=== PATIENT | female | born 1970 | race Two or more races ===

== ENCOUNTER 2021-12-22 14:10 | Inpatient (IN) | payer MEDICAID, OTHER ==
[~2021-12-22] VITALS: Ht 30.5 cm; Wt 127.0 kg
[2021-12-22] MEDS ORDERED: AMIODARONE HCL 150 MG in D5W 5% 100 ML IV ONE (14:30)
[2021-12-22] MEDS ORDERED: AMIODARONE 450mg/250ml AE 250 ML IV SCH (14:45)
[2021-12-22] MEDS: NOREPINEPHRINE 8 MG/250ML KIT 250 ML IV SCH (14:45)
[2021-12-22] MEDS: MIDAZOLAM DRIP 50 mg/50mL 50 ML IV SCH ×2 (15:30→16:14)
[2021-12-22 16:02] LABS: Basophils # (auto) 0 10 ^3/uL (0-0.2); Lymphocytes # (auto) 0.7 10 ^3/uL (0.4-5.4); Mean Corpuscular Hemoglobin 28.5 pg (28.0-32.0); Monocytes # (auto) 0.2 10 ^3/uL (0-1.3); Monocytes % (auto) 2.3 % (0.0-12.0); Nucleated Red Blood Cells % 0.1 %
[2021-12-22 16:04] LABS: Basophils % (auto) 0.6 % (0.0-2.0); Eosinophils # (auto) 0.1 10 ^3/uL (0-0.8); Eosinophils % (auto) 0.8 % (0.0-7.0); Hemoglobin 7.1 g/dL (12.2-16.2); Lymphocytes % (auto) 9.4 % (10.0-50.0); Mean Corpuscular Hgb Conc. 32.4 g/dL (32.0-36.0); Neutrophils # (auto) 6.4 10 ^3/uL (1.6-8.6); Neutrophils % (auto) 86.9 % (37.0-80.0); Red Cell Distribution Width 16.4 % (11.8-14.3); White Blood Cell 7.4 10^3/uL (4.4-10.8)
[2021-12-22 16:25] LABS: Albumin 2.5 g/dL (3.4-5.0); BUN/Creatinine Ratio 6.7; Bilirubin, Total 0.4 mg/dL (0.2-1.0); Calcium 7.8 mg/dL (8.5-10.1); Magnesium 3.3 mg/dL (1.6-2.6)
[2021-12-22 17:16] LABS: Potassium 7.7 mmol/L (3.5-5.1)
[2021-12-22] MEDS ORDERED: PROPOFOL 100 ML IV ONE (17:40)
[2021-12-22] MEDS ORDERED: CALCIUM GLUC 1,000mg/50ml-NS 50 ML IV ONE ×3 (17:47→19:30)
[2021-12-22] MEDS ORDERED: SODIUM BICARBONATE 8.4 % INJ 50ML VIAL IV ONE (18:45)
[2021-12-22] MEDS: PROPOFOL 100 ML IV SCH (18:45)
[2021-12-22 19:01] VITALS: BP 158/109
[2021-12-22] MEDS ORDERED: DOPamine 1600MCG/ML D5W 250 ML IV ONE (20:30)
[2021-12-22 22:08] VITALS: BP 143/78
[2021-12-22] MEDS ORDERED: ONDANSETRON HCL 4 MG/2 ML VIAL IV PRN (22:15)
[2021-12-22] MEDS ORDERED: ACETAMINOPHEN 650 MG RECT SUPP PR PRN (22:15)
[2021-12-22] MEDS ORDERED: DEXTROSE (50%) 50ML SYRG IV PRN (22:15)
[2021-12-22 23:28] LABS: Basophils # (auto) 0.1 10 ^3/uL (0-0.2); Basophils % (auto) 1.7 % (0.0-2.0); Eosinophils # (auto) 0 10 ^3/uL (0-0.8); Eosinophils % (auto) 0.5 % (0.0-7.0); Hematocrit 26.6 % (36.0-46.0); Hemoglobin 8.7 g/dL (12.2-16.2); Lymphocytes # (auto) 0.4 10 ^3/uL (0.4-5.4); Lymphocytes % (auto) 5.9 % (10.0-50.0); Mean Corpuscular Hemoglobin 28.1 pg (28.0-32.0); Mean Corpuscular Hgb Conc. 32.6 g/dL (32.0-36.0); Mean Corpuscular Volume 86.3 fL (80.0-100.0); Monocytes # (auto) 0.3 10 ^3/uL (0-1.3); Monocytes % (auto) 3.8 % (0.0-12.0); Neutrophils # (auto) 6.7 10 ^3/uL (1.6-8.6); Neutrophils % (auto) 88.1 % (37.0-80.0); Red Blood Cells 3.08 10^6/uL (4.0-5.20); Red Cell Distribution Width 16.1 % (11.8-14.3); White Blood Cell 7.6 10^3/uL (4.4-10.8)
[2021-12-22 23:42] LABS: Albumin 3.3 g/dL (3.4-5.0); Calcium 8.2 mg/dL (8.5-10.1)
[2021-12-22 23:45] LABS: BUN/Creatinine Ratio 7.2; Bilirubin, Total 0.4 mg/dL (0.2-1.0); Phosphorus 5.4 mg/dL (2.5-4.90); Total Protein 6.2 g/dL (6.4-8.2)
[2021-12-22 23:49] LABS: Potassium 7.7 mmol/L (3.5-5.1)
[2021-12-23] MEDS ORDERED: ALBUTEROL SULF 2.5 MG/0.5ML(0.5%) NEB SOLN NEB ONE
[2021-12-23] MEDS: InsuLIN REG 1unit/0.01ml Soln (100units/ml) SC SCH ×4 (00:15→18:00)
[2021-12-23] MEDS ORDERED: ALBUTEROL SULF 2.5 MG/0.5ML(0.5%) NEB SOLN ONE (00:21)
[2021-12-23] MEDS ORDERED: SODIUM BICARBONATE 8.4 % INJ 50ML VIAL IV ONE ×2 (00:30→06:45)
[2021-12-23] MEDS ORDERED: DEXTROSE (50%) 50ML SYRG IV ONE ×2 (00:30→06:45)
[2021-12-23] MEDS ORDERED: InsuLIN REG 1unit/0.01ml Soln (100units/ml) IV ONE ×2 (00:30→06:45)
[2021-12-23] MEDS ORDERED: CALCIUM GLUC 1,000mg/50ml-NS 50 ML IV ONE ×3 (00:30→06:45)
[2021-12-23] MEDS: fentaNYL Drip 2500mCg/250mlNS 250 ML IV SCH ×2 (00:45→23:30)
[2021-12-23] MEDS: ACCU-CHEK COMFORT CURVE STRIP VI SCH ×4 (01:15→18:18)
[2021-12-23 02:02] VITALS: BP 189/89
[2021-12-23 04:13] LABS: Lactic Acid w/Reflex 2.4 mmol/L (0.4-2.0)
[2021-12-23] MEDS: SODIUM CHLOR 0.9% PF (SALINE LOCK) 10ML VIAL/SYR IV SCH ×4 (05:53→22:14)
[2021-12-23 07:37] VITALS: BP 168/74
[2021-12-23 08:39] LABS: Basophils # (auto) 0.1 10 ^3/uL (0-0.2); Basophils % (auto) 1.1 % (0.0-2.0); Eosinophils # (auto) 0 10 ^3/uL (0-0.8); Eosinophils % (auto) 0.1 % (0.0-7.0); Hematocrit 29.7 % (36.0-46.0); Hemoglobin 9.7 g/dL (12.2-16.2); Lymphocytes # (auto) 1.1 10 ^3/uL (0.4-5.4); Lymphocytes % (auto) 18.1 % (10.0-50.0); Mean Corpuscular Hemoglobin 28.3 pg (28.0-32.0); Mean Corpuscular Hgb Conc. 32.7 g/dL (32.0-36.0); Mean Corpuscular Volume 86.5 fL (80.0-100.0); Monocytes # (auto) 0.6 10 ^3/uL (0-1.3); Monocytes % (auto) 9.5 % (0.0-12.0); Neutrophils # (auto) 4.3 10 ^3/uL (1.6-8.6); Neutrophils % (auto) 71.2 % (37.0-80.0); Red Blood Cells 3.43 10^6/uL (4.0-5.20); Red Cell Distribution Width 16.5 % (11.8-14.3); White Blood Cell 6.1 10^3/uL (4.4-10.8)
[2021-12-23 09:42] LABS: Albumin 2.9 g/dL (3.4-5.0); BUN/Creatinine Ratio 6.9; Bilirubin, Total 0.3 mg/dL (0.2-1.0); Calcium 8.2 mg/dL (8.5-10.1); Total Protein 6.6 g/dL (6.4-8.2)
[2021-12-23 09:47] VITALS: BP 73/42
[2021-12-23] MEDS: NOREPINEPHRINE 8 MG/250ML KIT 250 ML IV SCH (09:50)
[2021-12-23] MEDS: FAMOTIDINE (10MG/ML) 2ML VL IV SCH (10:00)
[2021-12-23] MEDS ORDERED: FAMOTIDINE (10MG/ML) 2ML VL IV SCH (10:00)
[2021-12-23] MEDS: HEPARIN SODIUM (PORCINE) 5000 UNITS/ML 1ML VIAL SC SCH ×2 (10:00→22:30)
[2021-12-23 10:05] LABS: Potassium 7.2 mmol/L (3.5-5.1)
[2021-12-23 10:05] LABS: INR 1.04 (0.9-1.15)
[2021-12-23] MEDS ORDERED: DOPamine 1600MCG/ML D5W 250 ML IV ONE (10:55)
[2021-12-23] MEDS ORDERED: MORPHINE SULFATE INJECTION 2 MG/ML SYRG IV PRN (11:15)
[2021-12-23] MEDS ORDERED: NITROGLYCERIN 0.4 MG SL TAB SL PRN (11:15)
[2021-12-23 14:17] VITALS: BP 227/102
[2021-12-23 14:18] LABS: BUN/Creatinine Ratio 7.1; Calcium 7.1 mg/dL (8.5-10.1); Potassium 4.4 mmol/L (3.5-5.1)
[2021-12-23] MEDS ORDERED: LIDOCAINE 1% (LOCAL ANESTH.) PF 5ml SDV ID ONE (15:30)
[2021-12-23] MEDS: PROPOFOL 100 ML IV SCH (18:28)
[2021-12-23 18:35] VITALS: BP 135/62
[2021-12-23 21:41] VITALS: BP 155/68
[2021-12-24] VITALS (16 sets, daily range): BP systolic 114–168; BP diastolic 23–78
[2021-12-24] MEDS: ACCU-CHEK COMFORT CURVE STRIP VI SCH ×4 (00:11→17:37)
[2021-12-24] MEDS: SODIUM CHLOR 0.9% PF (SALINE LOCK) 10ML VIAL/SYR IV SCH ×5 (06:00→22:00)
[2021-12-24] MEDS: InsuLIN REG 1unit/0.01ml Soln (100units/ml) SC SCH ×4 (06:45→17:37)
[2021-12-24 08:10] LABS: Basophils # (auto) 0 10 ^3/uL (0-0.2); Eosinophils # (auto) 0.1 10 ^3/uL (0-0.8); Hemoglobin 8.1 g/dL (12.2-16.2); Lymphocytes # (auto) 0.8 10 ^3/uL (0.4-5.4); Monocytes # (auto) 0.5 10 ^3/uL (0-1.3); Monocytes % (auto) 9.7 % (0.0-12.0); White Blood Cell 4.9 10^3/uL (4.4-10.8)
[2021-12-24 08:12] LABS: Basophils % (auto) 0.5 % (0.0-2.0); Eosinophils % (auto) 1.2 % (0.0-7.0); Hematocrit 24.2 % (36.0-46.0); Mean Corpuscular Hemoglobin 28.5 pg (28.0-32.0); Mean Corpuscular Hgb Conc. 33.2 g/dL (32.0-36.0); Mean Corpuscular Volume 85.7 fL (80.0-100.0); Neutrophils # (auto) 3.6 10 ^3/uL (1.6-8.6); Neutrophils % (auto) 72.6 % (37.0-80.0); Red Blood Cells 2.83 10^6/uL (4.0-5.20); Red Cell Distribution Width 16.6 % (11.8-14.3)
[2021-12-24 08:27] LABS: Albumin 2.6 g/dL (3.4-5.0); Calcium 7.6 mg/dL (8.5-10.1)
[2021-12-24 08:31] LABS: BUN/Creatinine Ratio 6.8; Bilirubin, Total 0.5 mg/dL (0.2-1.0); Total Protein 5.9 g/dL (6.4-8.2)
[2021-12-24 08:34] LABS: Potassium 6.4 mmol/L (3.5-5.1)
[2021-12-24] MEDS ORDERED: DEXTROSE 10% 1,000 ML IV ONE (10:00)
[2021-12-24] MEDS: HEPARIN SODIUM (PORCINE) 5000 UNITS/ML 1ML VIAL SC SCH ×2 (10:12→23:16)
[2021-12-24] MEDS: hydrALAZINE HCL 20 MG/ML VL IV PRN (11:10)
[2021-12-24] MEDS: NOREPINEPHRINE 8 MG/250ML KIT 250 ML IV SCH (14:45)
[2021-12-24] MEDS: MIDAZOLAM DRIP 50 mg/50mL 50 ML IV SCH (16:15)
[2021-12-24] MEDS: PROPOFOL 100 ML IV SCH (18:45)
[2021-12-24] MEDS: fentaNYL Drip 2500mCg/250mlNS 250 ML IV SCH (23:15)
[2021-12-25] VITALS (23 sets, daily range): BP systolic 97–188; BP diastolic 37–67
[2021-12-25] MEDS: PROPOFOL 100 ML IV SCH ×2 (00:48→04:16)
[2021-12-25] MEDS: InsuLIN REG 1unit/0.01ml Soln (100units/ml) SC SCH ×5 (05:38→23:58)
[2021-12-25] MEDS: SODIUM CHLOR 0.9% PF (SALINE LOCK) 10ML VIAL/SYR IV SCH ×3 (05:38→22:49)
[2021-12-25] MEDS: ACCU-CHEK COMFORT CURVE STRIP VI SCH ×5 (05:38→23:58)
[2021-12-25 07:47] LABS: Albumin 2.3 g/dL (3.4-5.0); Calcium 6.6 mg/dL (8.5-10.1); Red Cell Distribution Width 16.5 % (11.8-14.3)
[2021-12-25 07:50] LABS: Hematocrit 18.9 % (36.0-46.0); Mean Corpuscular Hemoglobin 30.5 pg (28.0-32.0); Mean Corpuscular Hgb Conc. 35.1 g/dL (32.0-36.0); Mean Corpuscular Volume 86.8 fL (80.0-100.0); Red Blood Cells 2.18 10^6/uL (4.0-5.20); White Blood Cell 5.7 10^3/uL (4.4-10.8)
[2021-12-25 07:52] LABS: BUN/Creatinine Ratio 6.8; Bilirubin, Total 0.7 mg/dL (0.2-1.0); Total Protein 5.3 g/dL (6.4-8.2)
[2021-12-25 08:07] LABS: Potassium 6.4 mmol/L (3.5-5.1)
[2021-12-25 08:18] LABS: Hemoglobin 6.6 g/dL (12.2-16.2)
[2021-12-25 08:19] LABS: Basophils % (manual) 0 (0.0-2.0); Blast Cells 0; Metamyelocytes % 0; Myelocytes % 0; Promyelocytes % 0; Reactive Lymphocytes 0
[2021-12-25] MEDS ORDERED: DEXTROSE (50%) 50ML SYRG IV ONE (09:15)
[2021-12-25] MEDS ORDERED: CALCIUM GLUC 1,000mg/50ml-NS 50 ML IV ONE (09:15)
[2021-12-25] MEDS ORDERED: SODIUM ZIRCONIUM CYCL 10 GM PAK PO ONE (09:15)
[2021-12-25] MEDS ORDERED: InsuLIN REG 1unit/0.01ml Soln (100units/ml) IV ONE (09:15)
[2021-12-25 09:42] LABS: Band Neutrophils % (manual) 1; Eosinophils % (manual) 2 (0-7); Lymphocytes % (manual) 18 (10.0-50.0); Monocytes % (manual) 5 (0-12)
[2021-12-25] MEDS: DEXTROSE 10% 1,000 ML IV SCH ×2 (11:00→23:01)
[2021-12-25] MEDS ORDERED: SODIUM CHL 0.9% 1000 ML BAG XX ONE (12:15)
[2021-12-25] MEDS: FAMOTIDINE (10MG/ML) 2ML VL IV SCH (12:19)
[2021-12-25] MEDS: ALBUTEROL SULF 2.5 MG/0.5ML(0.5%) NEB SOLN NEB ONE ×2 (14:14→17:56)
[2021-12-25] MEDS: HEPARIN SODIUM (PORCINE) 5000 UNITS/ML 1ML VIAL SC SCH ×2 (14:24→22:50)
[2021-12-25] MEDS: NOREPINEPHRINE 8 MG/250ML KIT 250 ML IV SCH (14:45)
[2021-12-25] MEDS: MIDAZOLAM DRIP 50 mg/50mL 50 ML IV SCH (17:01)
[2021-12-26 02:27] VITALS: BP 128/48
[2021-12-26 06:00] VITALS: BP 158/52
[2021-12-26] MEDS: ACCU-CHEK COMFORT CURVE STRIP VI SCH ×4 (06:00→23:54)
[2021-12-26] MEDS: InsuLIN REG 1unit/0.01ml Soln (100units/ml) SC SCH ×4 (06:00→23:54)
[2021-12-26] MEDS: fentaNYL Drip 2500mCg/250mlNS 250 ML IV SCH ×2 (07:18→23:00)
[2021-12-26 07:22] LABS: Basophils # (auto) 0 10 ^3/uL (0-0.2); Basophils % (auto) 0.5 % (0.0-2.0); Eosinophils # (auto) 0 10 ^3/uL (0-0.8); Eosinophils % (auto) 0.1 % (0.0-7.0); Hematocrit 27.3 % (36.0-46.0); Hemoglobin 9.3 g/dL (12.2-16.2); Lymphocytes # (auto) 0.6 10 ^3/uL (0.4-5.4); Lymphocytes % (auto) 10.3 % (10.0-50.0); Mean Corpuscular Hemoglobin 29.6 pg (28.0-32.0); Mean Corpuscular Volume 87.1 fL (80.0-100.0); Monocytes # (auto) 0.6 10 ^3/uL (0-1.3); Neutrophils # (auto) 4.3 10 ^3/uL (1.6-8.6); Neutrophils % (auto) 78.1 % (37.0-80.0); Nucleated Red Blood Cells % 0.1 %; Red Blood Cells 3.14 10^6/uL (4.0-5.20); Red Cell Distribution Width 15.4 % (11.8-14.3); White Blood Cell 5.6 10^3/uL (4.4-10.8)
[2021-12-26 07:40] LABS: Potassium 5.2 mmol/L (3.5-5.1)
[2021-12-26 07:47] LABS: Albumin 2.4 g/dL (3.4-5.0); BUN/Creatinine Ratio 5.5; Bilirubin, Total 1.3 mg/dL (0.2-1.0); Calcium 7.5 mg/dL (8.5-10.1); Total Protein 6.1 g/dL (6.4-8.2)
[2021-12-26] MEDS: DEXTROSE 10% 1,000 ML IV SCH ×2 (08:44→18:57)
[2021-12-26] MEDS: hydrALAZINE HCL 20 MG/ML VL IV PRN ×2 (09:06→15:07)
[2021-12-26] MEDS ORDERED: diphenhdrAMINE HCL 50 MG/1 ML VL IV ONE (09:30)
[2021-12-26] MEDS: SODIUM CHLOR 0.9% PF (SALINE LOCK) 10ML VIAL/SYR IV SCH ×2 (09:30→22:39)
[2021-12-26] MEDS: DexAMETHasone SOD PHOS 10MG/1ML VIAL INJ IV SCH (09:46)
[2021-12-26] MEDS: HEPARIN SODIUM (PORCINE) 5000 UNITS/ML 1ML VIAL SC SCH ×2 (10:08→22:40)
[2021-12-26 10:30] VITALS: BP 114/45
[2021-12-26 14:30] VITALS: BP 192/72
[2021-12-26] MEDS: NOREPINEPHRINE 8 MG/250ML KIT 250 ML IV SCH (14:45)
[2021-12-26] MEDS: MIDAZOLAM DRIP 50 mg/50mL 50 ML IV SCH (16:15)
[2021-12-26] MEDS: PROPOFOL 100 ML IV SCH (18:45)
[2021-12-26 19:05] VITALS: BP 164/62
[2021-12-26 21:38] VITALS: BP 173/58
[2021-12-27] VITALS (9 sets, daily range): BP systolic 124–189; BP diastolic 43–69
[2021-12-27] MEDS: hydrALAZINE HCL 20 MG/ML VL IV PRN ×3 (00:04→23:42)
[2021-12-27] MEDS: DEXTROSE 10% 1,000 ML IV SCH ×2 (04:46→15:03)
[2021-12-27] MEDS: InsuLIN REG 1unit/0.01ml Soln (100units/ml) SC SCH ×4 (06:00→23:35)
[2021-12-27] MEDS: ACCU-CHEK COMFORT CURVE STRIP VI SCH ×4 (06:02→23:34)
[2021-12-27 07:46] LABS: Albumin 2.4 g/dL (3.4-5.0); Bilirubin, Direct 0.5 mg/dL (0-0.2)
[2021-12-27 07:49] LABS: Bilirubin, Total 0.8 mg/dL (0.2-1.0); Total Protein 5.9 g/dL (6.4-8.2)
[2021-12-27] MEDS: DexAMETHasone SOD PHOS 10MG/1ML VIAL INJ IV SCH (10:04)
[2021-12-27] MEDS: SODIUM CHLOR 0.9% PF (SALINE LOCK) 10ML VIAL/SYR IV SCH ×2 (10:04→22:05)
[2021-12-27] MEDS: FAMOTIDINE (10MG/ML) 2ML VL IV SCH (10:04)
[2021-12-27] MEDS: HEPARIN SODIUM (PORCINE) 5000 UNITS/ML 1ML VIAL SC SCH ×2 (10:05→22:00)
[2021-12-27] MEDS: NOREPINEPHRINE 8 MG/250ML KIT 250 ML IV SCH (14:45)
[2021-12-27 16:06] LABS: Calcium 7.3 mg/dL (8.5-10.1)
[2021-12-27 16:09] LABS: BUN/Creatinine Ratio 6.7
[2021-12-27] MEDS: MIDAZOLAM DRIP 50 mg/50mL 50 ML IV SCH (16:15)
[2021-12-27] MEDS ORDERED: InsuLIN REG 1unit/0.01ml Soln (100units/ml) IV ONE (16:30)
[2021-12-27] MEDS ORDERED: DEXTROSE (50%) 50ML SYRG IV ONE (16:30)
[2021-12-27] MEDS ORDERED: CALCIUM GLUC 1,000mg/50ml-NS 50 ML IV ONE (16:30)
[2021-12-27] MEDS ORDERED: SODIUM CHL 0.9% 1000 ML BAG XX ONE (17:30)
[2021-12-27] MEDS: PROPOFOL 100 ML IV SCH (19:30)
[2021-12-27] MEDS ORDERED: EPOETIN ALFA-EPBX 4,000 UNIT/ML VIAL SC ONE (21:00)
[2021-12-27] MEDS: fentaNYL Drip 2500mCg/250mlNS 250 ML IV SCH (23:25)
[2021-12-27 23:50] LABS: Basophils # (auto) 0 10 ^3/uL (0-0.2); Basophils % (auto) 0.5 % (0.0-2.0); Eosinophils # (auto) 0 10 ^3/uL (0-0.8); Hemoglobin 8.9 g/dL (12.2-16.2); Lymphocytes # (auto) 0.3 10 ^3/uL (0.4-5.4); Lymphocytes % (auto) 6.4 % (10.0-50.0); Mean Corpuscular Hemoglobin 29.1 pg (28.0-32.0); Mean Corpuscular Hgb Conc. 33.1 g/dL (32.0-36.0); Mean Corpuscular Volume 87.9 fL (80.0-100.0); Monocytes # (auto) 0.3 10 ^3/uL (0-1.3); Monocytes % (auto) 5.5 % (0.0-12.0); Neutrophils # (auto) 4.4 10 ^3/uL (1.6-8.6); Neutrophils % (auto) 87.6 % (37.0-80.0); Nucleated Red Blood Cells % 0.1 %; Red Blood Cells 3.08 10^6/uL (4.0-5.20); Red Cell Distribution Width 16.5 % (11.8-14.3)
[2021-12-28] VITALS (67 sets, daily range): BP systolic 130–191; BP diastolic 43–99
[2021-12-28 00:08] LABS: BUN/Creatinine Ratio 6.5; Calcium 7.4 mg/dL (8.5-10.1); Potassium 4.9 mmol/L (3.5-5.1)
[2021-12-28] MEDS: DEXTROSE 10% 1,000 ML IV SCH ×3 (03:14→21:38)
[2021-12-28] MEDS: hydrALAZINE HCL 20 MG/ML VL IV PRN ×3 (04:42→17:56)
[2021-12-28] MEDS: InsuLIN REG 1unit/0.01ml Soln (100units/ml) SC SCH ×3 (05:47→18:21)
[2021-12-28] MEDS: ACCU-CHEK COMFORT CURVE STRIP VI SCH ×3 (05:48→18:21)
[2021-12-28] MEDS: fentaNYL Drip 2500mCg/250mlNS 250 ML IV SCH ×2 (05:51→17:55)
[2021-12-28 09:08] LABS: Basophils # (auto) 0 10 ^3/uL (0-0.2); Basophils % (auto) 0.3 % (0.0-2.0); Eosinophils # (auto) 0 10 ^3/uL (0-0.8); Eosinophils % (auto) 0.2 % (0.0-7.0); Hematocrit 28.1 % (36.0-46.0); Hemoglobin 9.2 g/dL (12.2-16.2); Lymphocytes # (auto) 0.5 10 ^3/uL (0.4-5.4); Lymphocytes % (auto) 8.4 % (10.0-50.0); Mean Corpuscular Hemoglobin 28.8 pg (28.0-32.0); Mean Corpuscular Hgb Conc. 32.7 g/dL (32.0-36.0); Monocytes # (auto) 0.7 10 ^3/uL (0-1.3); Monocytes % (auto) 13.6 % (0.0-12.0); Neutrophils # (auto) 4.2 10 ^3/uL (1.6-8.6); Neutrophils % (auto) 77.5 % (37.0-80.0); Nucleated Red Blood Cells % 0.1 %; Red Blood Cells 3.19 10^6/uL (4.0-5.20); White Blood Cell 5.5 10^3/uL (4.4-10.8)
[2021-12-28] MEDS: SODIUM CHLOR 0.9% PF (SALINE LOCK) 10ML VIAL/SYR IV SCH ×2 (09:17→21:38)
[2021-12-28] MEDS: DexAMETHasone SOD PHOS 10MG/1ML VIAL INJ IV SCH (09:17)
[2021-12-28] MEDS: HEPARIN SODIUM (PORCINE) 5000 UNITS/ML 1ML VIAL SC SCH ×2 (09:18→21:39)
[2021-12-28 09:36] LABS: BUN/Creatinine Ratio 6.6; Calcium 7.3 mg/dL (8.5-10.1); Potassium 4.5 mmol/L (3.5-5.1)
[2021-12-28] MEDS: PROPOFOL 100 ML IV SCH (19:00)
[2021-12-28] MEDS: MIDAZOLAM DRIP 50 mg/50mL 50 ML IV SCH (19:00)
[2021-12-28] MEDS: NOREPINEPHRINE 8 MG/250ML KIT 250 ML IV SCH (19:00)
[2021-12-29] VITALS (80 sets, daily range): BP systolic 89–182; BP diastolic 20–77
[2021-12-29] MEDS: ACCU-CHEK COMFORT CURVE STRIP VI SCH ×4 (00:11→17:08)
[2021-12-29] MEDS: InsuLIN REG 1unit/0.01ml Soln (100units/ml) SC SCH ×4 (00:49→17:08)
[2021-12-29] MEDS: hydrALAZINE HCL 20 MG/ML VL IV PRN ×2 (03:55→22:43)
[2021-12-29] MEDS: fentaNYL Drip 2500mCg/250mlNS 250 ML IV SCH (05:39)
[2021-12-29] MEDS: DEXTROSE 10% 1,000 ML IV SCH ×2 (05:41→09:53)
[2021-12-29 06:00] LABS: Basophils # (auto) 0 10 ^3/uL (0-0.2); Basophils % (auto) 0.3 % (0.0-2.0); Eosinophils # (auto) 0 10 ^3/uL (0-0.8); Eosinophils % (auto) 0.1 % (0.0-7.0); Hematocrit 32.6 % (36.0-46.0); Hemoglobin 10.6 g/dL (12.2-16.2); Lymphocytes # (auto) 0.6 10 ^3/uL (0.4-5.4); Lymphocytes % (auto) 10.7 % (10.0-50.0); Mean Corpuscular Hemoglobin 28.9 pg (28.0-32.0); Mean Corpuscular Hgb Conc. 32.6 g/dL (32.0-36.0); Mean Corpuscular Volume 88.8 fL (80.0-100.0); Monocytes # (auto) 0.8 10 ^3/uL (0-1.3); Monocytes % (auto) 14.6 % (0.0-12.0); Neutrophils % (auto) 74.3 % (37.0-80.0); Nucleated Red Blood Cells % 0.1 %; Red Blood Cells 3.67 10^6/uL (4.0-5.20); Red Cell Distribution Width 15.8 % (11.8-14.3); White Blood Cell 5.4 10^3/uL (4.4-10.8)
[2021-12-29 08:26] LABS: BUN/Creatinine Ratio 7.4; Calcium 7.7 mg/dL (8.5-10.1); Potassium 4.9 mmol/L (3.5-5.1)
[2021-12-29] MEDS ORDERED: SODIUM CHL 0.9% 1000 ML BAG XX ONE (09:30)
[2021-12-29] MEDS: DexAMETHasone SOD PHOS 10MG/1ML VIAL INJ IV SCH (09:56)
[2021-12-29] MEDS: SODIUM CHLOR 0.9% PF (SALINE LOCK) 10ML VIAL/SYR IV SCH ×2 (09:56→22:00)
[2021-12-29] MEDS: HEPARIN SODIUM (PORCINE) 5000 UNITS/ML 1ML VIAL SC SCH ×2 (09:57→22:34)
[2021-12-29] MEDS: FAMOTIDINE (10MG/ML) 2ML VL IV SCH (10:01)
[2021-12-29] MEDS ORDERED: ALBUMIN 25% 100 ML IV ONE ×3 (11:26→13:30)
[2021-12-29] MEDS: NOREPINEPHRINE 8 MG/250ML KIT 250 ML IV SCH (11:51)
[2021-12-29] MEDS: PROPOFOL 100 ML IV SCH (19:00)
[2021-12-29] MEDS: MIDAZOLAM DRIP 50 mg/50mL 50 ML IV SCH (19:00)
[2021-12-29] MEDS ORDERED: EPOETIN ALFA-EPBX 10,000 UNIT/1ML VIAL SC ONE (21:00)
[2021-12-30] VITALS (78 sets, daily range): BP systolic 104–220; BP diastolic 38–78
[2021-12-30] MEDS: DEXTROSE 10% 1,000 ML IV SCH ×2 (02:58→22:53)
[2021-12-30 05:35] LABS: Basophils # (auto) 0 10 ^3/uL (0-0.2); Eosinophils # (auto) 0 10 ^3/uL (0-0.8); Hemoglobin 7.9 g/dL (12.2-16.2); Lymphocytes # (auto) 0.3 10 ^3/uL (0.4-5.4); Mean Corpuscular Volume 92.7 fL (80.0-100.0); Monocytes # (auto) 0.2 10 ^3/uL (0-1.3)
[2021-12-30 05:37] LABS: Hematocrit 25.2 % (36.0-46.0); Lymphocytes % (auto) 4.5 % (10.0-50.0); Mean Corpuscular Hgb Conc. 31.3 g/dL (32.0-36.0); Monocytes % (auto) 2.9 % (0.0-12.0); Neutrophils % (auto) 92.6 % (37.0-80.0); Red Blood Cells 2.71 10^6/uL (4.0-5.20); Red Cell Distribution Width 16.7 % (11.8-14.3); White Blood Cell 6.5 10^3/uL (4.4-10.8)
[2021-12-30] MEDS: ACCU-CHEK COMFORT CURVE STRIP VI SCH ×4 (05:46→17:56)
[2021-12-30] MEDS: InsuLIN REG 1unit/0.01ml Soln (100units/ml) SC SCH ×4 (05:47→17:56)
[2021-12-30 08:42] LABS: BUN/Creatinine Ratio 6.6; Calcium 7.1 mg/dL (8.5-10.1); Potassium 3.7 mmol/L (3.5-5.1)
[2021-12-30] MEDS: SODIUM CHLOR 0.9% PF (SALINE LOCK) 10ML VIAL/SYR IV SCH ×2 (10:00→22:00)
[2021-12-30] MEDS: DexAMETHasone SOD PHOS 10MG/1ML VIAL INJ IV SCH (10:33)
[2021-12-30] MEDS: HEPARIN SODIUM (PORCINE) 5000 UNITS/ML 1ML VIAL SC SCH ×2 (10:34→22:55)
[2021-12-30] MEDS: hydrALAZINE HCL 20 MG/ML VL IV PRN ×2 (13:57→16:49)
[2021-12-30] MEDS: fentaNYL Drip 2500mCg/250mlNS 250 ML IV SCH (15:06)
[2021-12-30] MEDS: MIDAZOLAM DRIP 50 mg/50mL 50 ML IV SCH (19:00)
[2021-12-30] MEDS: PROPOFOL 100 ML IV SCH (19:00)
[2021-12-30] MEDS: NOREPINEPHRINE 8 MG/250ML KIT 250 ML IV SCH (19:00)
[2021-12-30] MEDS: hydrALAZINE HCL 25 MG TAB PO SCH (22:54)
[2021-12-30] MEDS: METOPROLOL TARTRATE 25 MG TAB PO SCH (22:55)
[2021-12-31] VITALS (75 sets, daily range): BP systolic 98–183; BP diastolic 46–101
[2021-12-31] MEDS: ACCU-CHEK COMFORT CURVE STRIP VI SCH ×4 (00:24→18:00)
[2021-12-31] MEDS: InsuLIN REG 1unit/0.01ml Soln (100units/ml) SC SCH ×4 (06:00→18:00)
[2021-12-31 06:15] LABS: Basophils # (auto) 0 10 ^3/uL (0-0.2); Basophils % (auto) 0.1 % (0.0-2.0); Eosinophils # (auto) 0 10 ^3/uL (0-0.8); Hematocrit 27.6 % (36.0-46.0); Hemoglobin 9.3 g/dL (12.2-16.2); Lymphocytes # (auto) 0.4 10 ^3/uL (0.4-5.4); Mean Corpuscular Hemoglobin 29.3 pg (28.0-32.0); Mean Corpuscular Hgb Conc. 33.6 g/dL (32.0-36.0); Mean Corpuscular Volume 87.2 fL (80.0-100.0); Monocytes # (auto) 0.3 10 ^3/uL (0-1.3); Monocytes % (auto) 2.6 % (0.0-12.0); Neutrophils # (auto) 10.1 10 ^3/uL (1.6-8.6); Neutrophils % (auto) 93.3 % (37.0-80.0); Red Blood Cells 3.17 10^6/uL (4.0-5.20); Red Cell Distribution Width 16.3 % (11.8-14.3); White Blood Cell 10.8 10^3/uL (4.4-10.8)
[2021-12-31 06:31] LABS: Potassium 4.1 mmol/L (3.5-5.1)
[2021-12-31] MEDS: hydrALAZINE HCL 25 MG TAB PO SCH ×3 (06:40→22:00)
[2021-12-31 06:48] LABS: BUN/Creatinine Ratio 8.4; Calcium 7.4 mg/dL (8.5-10.1)
[2021-12-31] MEDS: DexAMETHasone SOD PHOS 10MG/1ML VIAL INJ IV SCH (10:48)
[2021-12-31] MEDS: SODIUM CHLOR 0.9% PF (SALINE LOCK) 10ML VIAL/SYR IV SCH ×2 (10:48→22:00)
[2021-12-31] MEDS: METOPROLOL TARTRATE 25 MG TAB PO SCH ×2 (10:49→22:00)
[2021-12-31] MEDS: amLODIPine BESYLATE 5 MG TAB PO SCH (10:50)
[2021-12-31] MEDS: HEPARIN SODIUM (PORCINE) 5000 UNITS/ML 1ML VIAL SC SCH ×2 (10:50→22:00)
[2021-12-31] MEDS: FAMOTIDINE (10MG/ML) 2ML VL IV SCH (10:51)
[2021-12-31] MEDS: DEXTROSE 10% 1,000 ML IV SCH ×2 (10:57→18:45)
[2021-12-31] MEDS: NOREPINEPHRINE 8 MG/250ML KIT 250 ML IV SCH (14:45)
[2021-12-31] MEDS: MIDAZOLAM DRIP 50 mg/50mL 50 ML IV SCH (16:15)
[2021-12-31] MEDS: PROPOFOL 100 ML IV SCH (18:45)
[2022-01-01] VITALS (85 sets, daily range): BP systolic 78–181; BP diastolic 40–96
[2022-01-01] MEDS: ACCU-CHEK COMFORT CURVE STRIP VI SCH ×4 (06:00→17:39)
[2022-01-01] MEDS: InsuLIN REG 1unit/0.01ml Soln (100units/ml) SC SCH ×4 (06:00→17:39)
[2022-01-01] MEDS ORDERED: SODIUM CHL 0.9% 1000 ML BAG XX ONE (07:00)
[2022-01-01 07:02] LABS: Basophils # (auto) 0 10 ^3/uL (0-0.2); Basophils % (auto) 0.2 % (0.0-2.0); Eosinophils # (auto) 0 10 ^3/uL (0-0.8); Hematocrit 26.6 % (36.0-46.0); Hemoglobin 8.9 g/dL (12.2-16.2); Lymphocytes # (auto) 0.3 10 ^3/uL (0.4-5.4); Mean Corpuscular Hgb Conc. 33.5 g/dL (32.0-36.0); Mean Corpuscular Volume 86.5 fL (80.0-100.0); Monocytes # (auto) 0.4 10 ^3/uL (0-1.3); Monocytes % (auto) 3.8 % (0.0-12.0); Neutrophils # (auto) 10.4 10 ^3/uL (1.6-8.6); Red Blood Cells 3.07 10^6/uL (4.0-5.20); Red Cell Distribution Width 16.4 % (11.8-14.3); White Blood Cell 11.2 10^3/uL (4.4-10.8)
[2022-01-01] MEDS: hydrALAZINE HCL 25 MG TAB PO SCH ×3 (07:03→22:00)
[2022-01-01 07:12] LABS: Calcium 7.3 mg/dL (8.5-10.1); Potassium 4.6 mmol/L (3.5-5.1)
[2022-01-01 07:15] LABS: BUN/Creatinine Ratio 9.6
[2022-01-01] MEDS: fentaNYL Drip 2500mCg/250mlNS 250 ML IV SCH (08:30)
[2022-01-01] MEDS: SODIUM CHLOR 0.9% PF (SALINE LOCK) 10ML VIAL/SYR IV SCH ×2 (09:30→22:00)
[2022-01-01] MEDS: amLODIPine BESYLATE 5 MG TAB PO SCH (09:30)
[2022-01-01] MEDS: DexAMETHasone SOD PHOS 10MG/1ML VIAL INJ IV SCH (09:30)
[2022-01-01] MEDS: METOPROLOL TARTRATE 25 MG TAB PO SCH ×2 (09:30→22:00)
[2022-01-01] MEDS: HEPARIN SODIUM (PORCINE) 5000 UNITS/ML 1ML VIAL SC SCH ×2 (09:31→22:00)
[2022-01-01] MEDS ORDERED: ALBUMIN 25% 100 ML IV ONE ×2 (13:09→13:15)
[2022-01-01] MEDS: NOREPINEPHRINE 8 MG/250ML KIT 250 ML IV SCH (14:45)
[2022-01-01] MEDS: MIDAZOLAM DRIP 50 mg/50mL 50 ML IV SCH (16:15)
[2022-01-01] MEDS: PROPOFOL 100 ML IV SCH (18:45)
[2022-01-01] MEDS ORDERED: EPOETIN ALFA-EPBX 10,000 UNIT/1ML VIAL SC ONE (21:00)
[2022-01-02] VITALS (93 sets, daily range): BP systolic 103–177; BP diastolic 42–75
[2022-01-02 04:59] LABS: BUN/Creatinine Ratio 10.4; Potassium 3.7 mmol/L (3.5-5.1)
[2022-01-02 05:30] LABS: Hematocrit 23.5 % (36.0-46.0); Hemoglobin 7.9 g/dL (12.2-16.2)
[2022-01-02 05:31] LABS: Mean Corpuscular Hemoglobin 28.9 pg (28.0-32.0); Mean Corpuscular Hgb Conc. 33.9 g/dL (32.0-36.0); Mean Corpuscular Volume 85.4 fL (80.0-100.0); Red Blood Cells 2.75 10^6/uL (4.0-5.20); Red Cell Distribution Width 16.8 % (11.8-14.3); White Blood Cell 3.9 10^3/uL (4.4-10.8)
[2022-01-02 05:48] LABS: Basophils % (manual) 0 (0.0-2.0); Blast Cells 0; Eosinophils % (manual) 0 (0-7); Promyelocytes % 0; Reactive Lymphocytes 0
[2022-01-02] MEDS: ACCU-CHEK COMFORT CURVE STRIP VI SCH ×5 (06:00→23:58)
[2022-01-02] MEDS: hydrALAZINE HCL 25 MG TAB PO SCH ×3 (06:00→22:19)
[2022-01-02] MEDS: InsuLIN REG 1unit/0.01ml Soln (100units/ml) SC SCH ×4 (06:00→18:00)
[2022-01-02] MEDS ORDERED: GLUCAGON HYDROCHLORIDE (RDNA) 1 MG VIAL ONE (06:28)
[2022-01-02 07:47] LABS: Band Neutrophils % (manual) 38; Lymphocytes % (manual) 11 (10.0-50.0); Metamyelocytes % 2; Monocytes % (manual) 11 (0-12); Myelocytes % 3
[2022-01-02] MEDS: fentaNYL Drip 2500mCg/250mlNS 250 ML IV SCH (10:51)
[2022-01-02] MEDS: DexAMETHasone SOD PHOS 10MG/1ML VIAL INJ IV SCH (10:52)
[2022-01-02] MEDS: FAMOTIDINE (10MG/ML) 2ML VL IV SCH (10:53)
[2022-01-02] MEDS: METOPROLOL TARTRATE 25 MG TAB PO SCH ×2 (10:53→22:19)
[2022-01-02] MEDS: amLODIPine BESYLATE 5 MG TAB PO SCH (10:53)
[2022-01-02] MEDS: SODIUM CHLOR 0.9% PF (SALINE LOCK) 10ML VIAL/SYR IV SCH ×2 (10:53→22:18)
[2022-01-02] MEDS: HEPARIN SODIUM (PORCINE) 5000 UNITS/ML 1ML VIAL SC SCH ×2 (10:55→22:19)
[2022-01-02] MEDS: NOREPINEPHRINE 8 MG/250ML KIT 250 ML IV SCH (14:45)
[2022-01-02] MEDS: MIDAZOLAM DRIP 50 mg/50mL 50 ML IV SCH (16:15)
[2022-01-02] MEDS: PROPOFOL 100 ML IV SCH (18:45)
[2022-01-03] VITALS (74 sets, daily range): BP systolic 71–170; BP diastolic 31–103
[2022-01-03 03:46] LABS: BUN/Creatinine Ratio 13.6; Calcium 7.5 mg/dL (8.5-10.1); Hemoglobin 9.3 g/dL (12.2-16.2); Mean Corpuscular Hemoglobin 28.1 pg (28.0-32.0); Mean Corpuscular Hgb Conc. 32.1 g/dL (32.0-36.0); Mean Corpuscular Volume 87.5 fL (80.0-100.0); Potassium 3.9 mmol/L (3.5-5.1); Red Blood Cells 3.31 10^6/uL (4.0-5.20); Red Cell Distribution Width 17.3 % (11.8-14.3); White Blood Cell 11.6 10^3/uL (4.4-10.8)
[2022-01-03 03:52] LABS: Basophils % (manual) 0 (0.0-2.0); Eosinophils % (manual) 0 (0-7); Metamyelocytes % 0
[2022-01-03 03:53] LABS: Blast Cells 0; Promyelocytes % 0; Reactive Lymphocytes 0
[2022-01-03 05:12] LABS: Monocytes % (manual) 3 (0-12); Myelocytes % 2
[2022-01-03 05:14] LABS: Band Neutrophils % (manual) 53; Lymphocytes % (manual) 8 (10.0-50.0)
[2022-01-03] MEDS: InsuLIN REG 1unit/0.01ml Soln (100units/ml) SC SCH ×4 (06:00→18:00)
[2022-01-03] MEDS: hydrALAZINE HCL 25 MG TAB PO SCH ×3 (06:00→21:45)
[2022-01-03] MEDS: ACCU-CHEK COMFORT CURVE STRIP VI SCH ×3 (06:09→18:00)
[2022-01-03] MEDS ORDERED: fentaNYL Drip 2500mCg/250mlNS 250 ML IV ONE (07:34)
[2022-01-03] MEDS: DexAMETHasone SOD PHOS 10MG/1ML VIAL INJ IV SCH (09:27)
[2022-01-03] MEDS: METOPROLOL TARTRATE 25 MG TAB PO SCH ×3 (09:28→21:46)
[2022-01-03] MEDS: SODIUM CHLOR 0.9% PF (SALINE LOCK) 10ML VIAL/SYR IV SCH ×2 (09:28→21:45)
[2022-01-03] MEDS: amLODIPine BESYLATE 5 MG TAB PO SCH (09:29)
[2022-01-03] MEDS: HEPARIN SODIUM (PORCINE) 5000 UNITS/ML 1ML VIAL SC SCH ×2 (09:30→21:48)
[2022-01-03] MEDS: DEXTROSE 10% 250 ML Bag IV PRN ×2 (10:00→18:00)
[2022-01-03] MEDS ORDERED: SODIUM CHL 0.9% 1000 ML BAG XX ONE ×2 (10:45→11:15)
[2022-01-03] MEDS: NOREPINEPHRINE 8 MG/250ML KIT 250 ML IV SCH (14:45)
[2022-01-03] MEDS: fentaNYL Drip 2500mCg/250mlNS 250 ML IV SCH ×2 (16:00→20:00)
[2022-01-03] MEDS: DEXTROSE 10% 1,000 ML IV SCH (19:30)
[2022-01-03] MEDS ORDERED: EPOETIN ALFA-EPBX 10,000 UNIT/1ML VIAL SC ONE ×2 (21:00)
[2022-01-04] VITALS (48 sets, daily range): BP systolic 68–161; BP diastolic 25–106
[2022-01-04] MEDS: DEXTROSE 10% 1,000 ML IV SCH (05:30)
[2022-01-04] MEDS: InsuLIN REG 1unit/0.01ml Soln (100units/ml) SC SCH ×2 (06:00)
[2022-01-04] MEDS: hydrALAZINE HCL 25 MG TAB PO SCH (06:00)
[2022-01-04] MEDS: ACCU-CHEK COMFORT CURVE STRIP VI SCH ×2 (06:06)
[2022-01-04 06:47] LABS: Hematocrit 24.6 % (36.0-46.0); Mean Corpuscular Hemoglobin 28.9 pg (28.0-32.0); Mean Corpuscular Hgb Conc. 32.7 g/dL (32.0-36.0); Mean Corpuscular Volume 88.3 fL (80.0-100.0); Red Blood Cells 2.78 10^6/uL (4.0-5.20); Red Cell Distribution Width 17.9 % (11.8-14.3); White Blood Cell 9.3 10^3/uL (4.4-10.8)
[2022-01-04 06:53] LABS: Calcium 7.6 mg/dL (8.5-10.1); Magnesium 2.9 mg/dL (1.6-2.6); Potassium 4.1 mmol/L (3.5-5.1)
[2022-01-04 06:55] LABS: Phosphorus 2.2 mg/dL (2.5-4.90)
[2022-01-04 07:05] LABS: Basophils % (manual) 0 (0.0-2.0); Blast Cells 0; Eosinophils % (manual) 0 (0-7); Myelocytes % 0; Promyelocytes % 0; Reactive Lymphocytes 0
[2022-01-04] MEDS: NOREPINEPHRINE 8 MG/250ML KIT 250 ML IV SCH (08:22)
[2022-01-04 08:29] LABS: Band Neutrophils % (manual) 43; Lymphocytes % (manual) 2 (10.0-50.0); Metamyelocytes % 3; Monocytes % (manual) 5 (0-12)
[2022-01-04] MEDS ORDERED: LORazepam 2MG/ML-1ML VIAL ONE (08:40)
[2022-01-04] MEDS ORDERED: PHENYTOIN IV DILANTIN 1,000 MG in SODIUM CHL 0.9% 250 ML IV ONE (09:15)
[2022-01-04] MEDS ORDERED: LORazepam 2MG/ML-1ML VIAL IV PRN (09:15)
[2022-01-04] MEDS: fentaNYL Drip 2500mCg/250mlNS 250 ML IV SCH (09:19)
[2022-01-04] MEDS: DexAMETHasone SOD PHOS 10MG/1ML VIAL INJ IV SCH (09:22)
[2022-01-04] MEDS: METOPROLOL TARTRATE 25 MG TAB PO SCH (09:23)
[2022-01-04] MEDS: amLODIPine BESYLATE 5 MG TAB PO SCH (09:23)
[2022-01-04] MEDS: SODIUM CHLOR 0.9% PF (SALINE LOCK) 10ML VIAL/SYR IV SCH (09:23)
[2022-01-04] MEDS ORDERED: PHENYTOIN SODIUM 50 MG/ML 2ML VIAL IV SCH (14:00)
[2022-01-05] MEDS ORDERED: SODIUM CHL 0.9% 1000 ML BAG XX ONE (07:00)
[2022-01-05] MEDS ORDERED: EPOETIN ALFA-EPBX 10,000 UNIT/1ML VIAL SC ONE (21:00)
== END 2022-01-04 13:55 | DRG 130 ==
LOC: EDBD 14:10 → ER 14:26 → ICU WEST 23:00 → OVERFLOW 12-23 11:13 → UNDOADMIN 12-23 11:13 → TELE 12-23 11:15 → ICU WEST 12-28 01:21 → OVERFLOW 12-28 02:15 → UNDODISIN 01-04 16:46
PROVIDERS: ADMIT Internal Medicine; ATTEND Internal Medicine
PROC: 5A1955Z Respiratory Ventilation, Greater than 96 Consecutive Hours (ICD-10-PCS; principal; 2021-12-23)
PROC: 0BH17EZ Insertion of Endotracheal Airway into Trachea, Via Natural or Artificial Opening (ICD-10-PCS; 2021-12-23)
PROC: 02HV33Z Insertion of Infusion Device into Superior Vena Cava, Percutaneous Approach (ICD-10-PCS; 2021-12-23)
PROC: 5A12012 Performance of Cardiac Output, Single, Manual (ICD-10-PCS; 2021-12-23)
PROC: 5A1D70Z Performance of Urinary Filtration, Intermittent, Less than 6 Hours Per Day (ICD-10-PCS; 2021-12-23)
PROC: 5A1D70Z Performance of Urinary Filtration, Intermittent, Less than 6 Hours Per Day (ICD-10-PCS; 2021-12-25)
PROC: 30233N1 Transfusion of Nonautologous Red Blood Cells into Peripheral Vein, Percutaneous Approach (ICD-10-PCS; 2021-12-25)
PROC: 5A1D70Z Performance of Urinary Filtration, Intermittent, Less than 6 Hours Per Day (ICD-10-PCS; 2021-12-27)
PROC: 5A1D70Z Performance of Urinary Filtration, Intermittent, Less than 6 Hours Per Day (ICD-10-PCS; 2021-12-29)
PROC: 5A1D70Z Performance of Urinary Filtration, Intermittent, Less than 6 Hours Per Day (ICD-10-PCS; 2022-01-01)
PROC: 5A1D70Z Performance of Urinary Filtration, Intermittent, Less than 6 Hours Per Day (ICD-10-PCS; 2022-01-03)
PROC: 0W9930Z Drainage of Right Pleural Cavity with Drainage Device, Percutaneous Approach (ICD-10-PCS; 2022-01-03)
DX: U07.1 COVID-19 (principal); J12.82 Pneumonia due to coronavirus disease 2019; I46.9 Cardiac arrest, cause unspecified; K72.00 Acute and subacute hepatic failure without coma; J93.0 Spontaneous tension pneumothorax; I21.4 Non-ST elevation (NSTEMI) myocardial infarction; G93.41 Metabolic encephalopathy; D63.8 Anemia in other chronic diseases classified elsewhere; E11.649 Type 2 diabetes mellitus with hypoglycemia without coma; J96.01 Acute respiratory failure with hypoxia; Z66 Do not resuscitate; I95.3 Hypotension of hemodialysis; E11.22 Type 2 diabetes mellitus with diabetic chronic kidney disease; N17.9 Acute kidney failure, unspecified; N18.6 End stage renal disease; E87.5 Hyperkalemia; Z99.2 Dependence on renal dialysis; R00.0 Tachycardia, unspecified; R55 Syncope and collapse; E87.6 Hypokalemia; D69.6 Thrombocytopenia, unspecified; E87.1 Hypo-osmolality and hyponatremia; G93.1 Anoxic brain damage, not elsewhere classified; H54.8 Legal blindness, as defined in USA; I12.0 Hypertensive chronic kidney disease with stage 5 chronic kidney disease or end stage renal disease; L89.91 Pressure ulcer of unspecified site, stage 1; R56.9 Unspecified convulsions
CPT/HCPCS: 36415; 36569; 36600; 71045; 80048; 80053; 80076; 82306; 82805; 82962; 83605; 83735; 83880; 83970; 84100; 84484; 85007; 85025; 85027; 85610; 86850; 86900; 86901; 86920; 87081; 87340; 90935; 92950; 93005; 93306; 94002; 94003; 94640; 94644; 96365; 96366; 96375; 99291; A4565; G0378; J1100; J1642; J1815; J2250; J2704; J3490; J7060; P9047